=== PATIENT | female | born 1955 | race Caucasian/White ===

== ENCOUNTER 2016-11-07 06:53 | Inpatient (IN) ==
[2016-11-07] MEDS ORDERED: methylPREDNISolone SOD SUC 125 MG/2 ML VIAL IV STA (07:18)
--- NOTE | 2016-11-07 07:24 | Emergency Department Note ---
Rocky Rogers Rolonda, am scribing for, and in the presence of, Jose Juan Groves MD 07: 18. Yaneli Rogers James D, MD, personally performed the services described in this documentation, ascribed by Mukesh Hidalgo in my presence, and it is both accurate and complete 723 . Arrival - Arrival Stated Complaint: anxiety attack Mode of Arrival: Stretcher Limitations: No Limitations Source: Old Records Reviewed, RN Notes Reviewed - History of Present Illness HPI Narrative: Pt is a 63 y/o female who was brought to the ED via EMS for further evaluation of anxiety attack. Pt has no PMHx of anxiety. Pt has Sxs of coughing and SOB. She goes to pain Tx 1 times a month. She confirms smoking No other complaint/ pain reported in ED. patient states that she was hospitalized last month at [facility] and was on mechanical ventilation due to pneumonia. Patient states that she is routinely followed by Dr. Maynard. She smokes cigarettes. Onset (ago): minute(s) Consistency: constant Severity: mild Severity scale (1-10): 3 Allergies/Adverse Reactions: Allergies Allergy/AdvReac Type Severity Reaction Status Date / Time succinylcholine Allergy Severe Unknown/Unable Verified 12/05/14 11:16 [From Anectine] to obtain duloxetine [From Cymbalta] Allergy Intermediate HIVES Verified 12/05/14 11:16 Review of System - Review of System 12 point system: reviewed and no additional remarkable complaints except as stated - Review of System Eyes: Absent: pain Head/Ears/Nose/Throat: Absent: earache Gastrointestinal: Absent: abdominal pain Musculoskeletal: Absent: arm pain, back pain, neck pain Skin: Absent: rash Psychiatric: Present: anxiety Medical,Surgical,& Family Hx - Medical History Respiratory: History of: Pneumonia - Social History Smoking Status: Current every day smoker Have you smoked in the last 12 months: Yes Time spent discussing smoking cessation with patient: 3 to 10 minutes Lives With:: Spouse Functional capacity: independent ambulation Exam Vital Signs: Vital Signs Temperature 97.9 F 11/07/16 06:59 Pulse Rate 96 H 11/07/16 06:59 Respiratory Rate 20 11/07/16 07:04 Blood Pressure 132/65 11/07/16 06:59 O2 Sat by Pulse Oximetry 90 L 11/07/16 06:59 GENERAL: This is a chronically ill-appearing white female in no apparent distress. VITAL SIGNS: Reviewed HEENT: Head is atraumatic and normocephalic. Pupils are equal round react to light. Extraocular movements are intact. Oropharynx is benign with moist mucous membranes. NECK: Neck is soft and supple without tenderness. There are no masses. There is no lymphadenopathy. LUNGS: Minimal expiratory wheezes in the bases bilaterally. Chest rises symmetrically. There is no chest wall tenderness. CV: Heart is regular rate and rhythm without murmurs rubs or gallops. ABDOMEN: Abdomen is soft, nontender to palpation. There are no abdominal abnormal masses palpated. There is no organomegaly. Bowel sounds are present and active. SKIN: Skin is warm and dry. No rash. EXTREMITIES: Patient has full range of motion without tenderness. There is no pedal edema. NEUROLOGIC: Awake alert and oriented 4. Cranial nerves II through XII are grossly intact. Motor is 5 over 5 in all extremities bilaterally. - Head Head exam: Present: normocephalic - Cardiovascular Cardiovascular exam: Present: bradycardia Course - Consultations Consultation #1: Discussed with hospitalist. Patient will be admitted to their service. Time: 08:48 Results - Labs CBC & BMP: 11/07/16 07:39 11/07/16 07:39 Lab Results: I have reviewed the patients labs Labs: Laboratory Tests 11/07/16 07:33 ABG pH 7.331 L ABG pCO2 46.1 ABG pO2 60.5 L ABG HCO3 22.8 ABG Total CO2 22.5 L ABG O2 Saturation 89.1 L ABG Base Excess -1.7 - EKG EKG results: interpreted by ERMD - Impressions EKG: Sinus rhythm with a rate of 73, left axis deviation, nonspecific ST-T wave changes. - Diagnostic Findings Procedure: Chest x-ray: image reviewed by me (Right lower lobe infiltrate.) Disposition Clinical Impression: Dyspnea, Pneumonia, Acute respiratory failure Case discussed with: patient Disposition: Still a Patient Condition: Stable Time of Disposition: 08:37
[2016-11-07] MEDS ORDERED: methylPREDNISolone SOD SUC 125 MG/2 ML VIAL ONE (07:29)
[2016-11-07] MEDS ORDERED: ALBUTEROL 2.5 MG/3 ML NEB RESP TX SCH (07:30)
[2016-11-07 07:48] LABS: ABG Base Excess -1.7 MMOL/L (-2.5-2.5); ABG HCO3 22.8 MMOL/L (20-26); ABG Oxygen Saturation 89.1 % (95-100); ABG PCO2 46.1 MM HG (35-48); ABG PH 7.331 (7.35-7.45); ABG PO2 60.5 MM HG (80-95); ABG TCO2 22.5 MMOL/L (23-27)
[2016-11-07 07:56] LABS: Basophils # 0.1 10*3/uL (0.0-0.2); Basophils % 0.4 % (0.0-0.8); Eosinophils % 0.2 % (0.00-10.9); Hemoglobin 9.6 GM/DL (12.0-16.0); Immature Granulocytes % 1.2 %; Immature Granulocytes Absolute 0.18 #; Lymphocytes # 1.1 10*3/uL (1.4-4.0); Lymphocytes % 7.1 % (21.3-54.2); Mean Corpuscular Hemoglobin 27 PG (27-34); Mean Platelet Volume 9.7 FL (9.6-12.0); Monocytes # 0.7 10*3/uL (0.11-0.8); Monocytes % 4.4 % (1.7-12.7); Neutrophils # 13.5 10*3/uL (1.4-7.4); Neutrophils % 86.7 % (38.7-73.9); Platelet Count 431 T/CUMM (130-400); Red Blood Count 3.53 MC/CUMM (3.8-5.5); White Blood Count 15.6 T/CUMM (4-12)
[2016-11-07 08:05] LABS: INR 1.2; PT Patient Result 13.1 SECS; Partial Thromboplastin Time 27.4 SECS (0-40)
--- NOTE | 2016-11-07 08:25 | EKG Report ---
Stationary ECG Study [facility] ER Test Date: 11/07/2016 8:25:27 AM Pat Name: TAB SANDHU Department: Room: Gender: F Data Transcriber: : 1955 Requested by: Jose Juan Taylor Order Number: [id number] Reading MD: ERIKA GOMEZ Intervals [place] Rate: 73 P: 64 [place]: 158 QRS: -29 QRSD: 102 T: 60 QT: 384 QTc: 409 Interpretive Statements SINUS RHYTHM BORDERLINE LEFT AXIS DEVIATION Electronically Signed On 11-07-16 13:06:51 CDT by ERIKA GOMEZ [email or web address]
[2016-11-07 08:33] LABS: Alanine Aminotransferase 17 U/L (13-56); Albumin 3.2 G/DL (3.4-5.0); Alkaline Phosphatase 132 U/L (45-117); Aspartate Amino Transferase 12 U/L (0-37); Bilirubin,Total < 0.39 MG/DL (0.2-1.0); Blood Urea Nitrogen 9 MG/DL (7-18); Calcium 8.2 MG/DL (8.5-10.1); Glucose 142 MG/DL (74-106); Osmolality,Calculated 273.8 MOS/KG (273-304); Potassium 3.9 MMOL/L (3.5-5.1); Sodium 137 MMOL/L (136-145); Troponin I Only < 0.015 NG/ML (0.00-0.045)
[2016-11-07] MEDS ORDERED: LEVOFLOXACIN INJ 750 MG in PREMIX 1 EACH IV STA (08:37)
[2016-11-07] MEDS ORDERED: LEVOFLOXACIN INJ 150 ML IV ONE (08:42)
--- NOTE | 2016-11-07 08:46 | XRay Report ---
History: Shortness of breath Date: 11/07/2016 Study: Chest x-ray AP portable Comparison exam: February 17, 2011 There is cardiomegaly. There is no mediastinal mass. The pulmonary vasculature is upper normal. There is some patchy and hazy airspace disease in the right lung base. There is mild to moderate right pleural effusion. Osseous structures are unchanged. Hardware from anterior cervical fusion overlies the lower cervical spine. Impression: Right basilar pneumonia and pleural effusion PROCEDURE INTERPRETED AT [facility] DEPARTMENT OF RADIOLOGY Final Report Signed by: Dr. Charla Mahmood
[2016-11-07] MEDS ORDERED: ALBUTEROL 2.5 MG/3 ML NEB RESP TX STA (08:47)
[2016-11-07 08:53] LABS: Barbiturates Screen,Urine Negative (Negative); Benzodiazepines Screen,Urine Positive (Negative); Cannabinoid Screen,Urine Negative (Negative); Opiate Screen,Urine Positive (Negative); Phencyclidine Screen,Urine Negative (Negative)
[2016-11-07] MEDS ORDERED: ALBUTEROL 2.5 MG/3 ML NEB RESP TX PRN (09:04)
--- NOTE | 2016-11-07 09:30 | Hospitalist History & Physical ---
<Josiah Munoz - Last Filed: 11/07/16 09:28> Assessment and Plan (1) Nicotine addiction Status: Acute Assessment and plan: Patient has a very significant history of nicotine addiction. Patient reports fairly recent attempts to abstain from smoking however, these were attempts were not successful. Spoke with patient in great detail regarding the need to refrain from smoking. Patient reports that she is planning on stopping at some point in time but not right now. We have offered the patient a nicotine patch for use during the clinical encounter. Current Visit: Yes (2) Pneumonia Status: Acute Assessment and plan: Patient was recently hospitalized for pneumonia at [facility] in [facility]. During that hospital admission the patient was intubated due to a very severe case of pneumonia. The patient reports that she has never been told that she has chronic obstructive pulmonary disease however her presenting signs and symptoms and the degree of severity; leads me to suspect that she has been told this in the past. Blood cultures were obtained in the ED. We will start empiric antibiotic coverage, inhaled bronchodilators, and intravenous corticosteroids. We will start DVT prophylaxis. We will consult pulmonary to evaluate and assist during the clinical encounter. Current Visit: Yes History of Present Illness Chief complaint: anxiety attack History of present illness: This is a 61-year-old female that presented to the ED at [facility] this morning via EMS for the evaluation of anxiety attack. Patient has a medical history significant for: Pneumonia, chronic pain, anxiety , osteoporosis, depression. Patient is surgical history significant for section, multiple neck and back surgeries. Patient reported the onset of symptoms several days prior to presentation. The patient reported a recent hospitalization at [facility] in [place], [place] for pneumonia. The patient reports that her pneumonia was very severe and that she required mechanical ventilation during that hospitalization. She reports that she never "got over the pneumonia" since the hospitalization. The patient reports that she is a current smoker, however she has decreased the amount that she smokes daily. Pertinent positives include: Orthopnea, shortness of breath, paroxysmal nocturnal dyspnea, anxiety, and cough; pertinent negatives include: nausea, vomiting, syncope, dysuria, abdominal pain, visual disturbances, and chest pain. At the time of ED presentation; the patient was noted to be in moderate respiratory distress. Inhaled bronchodilator treatments were immediately initiated. Labs were obtained; complete blood count was ordered which reported white blood cell count of 15.6, hemoglobin 9.6, hematocrit 30.0, and platelet count of 431 differential was significant for neutrophil% at 86.7, lymphocyte % at 7.1, neutrophil #at 86.7, and lymphocytes #1.1. Coagulation panel was obtained which reported an INR at 1.2, PT 13.1, PTT at 27.4. Arterial blood gases reported a pH of 7.331, PCO2 of 46, PO2 of 60.5, and HCO3 at 22.5. Chemistry panel reported sodium at 137, potassium 3.9, chloride 103, carbon dioxide 25, anion gap at 12.9, BUN at 9, creatinine at 1.20, GFR 51, glucose 142 , calcium 8.2, magnesium 2.0, AST at 12, ALT at 17, alkaline phosphatase at 132 , BNP 12/16/2018, total protein is 6.0, and albumin 3.2. Cardiac enzymes reported a troponin at less than 0.015. Urine toxicology was significant for positive findings for opioids and benzodiazepines. Chest x-ray was obtained which reported right basilar pneumonia and pleural effusion. In addition CT chest was ordered with a very significant findings as follows:1. Bilateral pleural effusions and underlying atelectatic change/pneumonic infiltration in the right base,2. hilar adenopathy and carinal and aortic pulmonic window nodes are present, small supraclavicular nodes are also present, some calcified nodes present in the right and left hilar region and posterior mediastinum as well and underlying malignancies cannot be excluded, 3. Underlying centrilobular emphysematous changes are also present, 4. Low-density nodular mass in the anterior aspect of the right hepatic lobe measuring 2.4 cm with a small cyst present this finding in the liver appears to represent a new finding when compared to the previous CT in 2011 and ultrasound of the liver or MRI of the liver may also be beneficial, 5. Vascular calcification of the aorta with cardiomegaly. After brief discussion with both and Dr. Arzola, the patient will be admitted to the hospitalist services for continuation of care. We will consult pulmonology to evaluate and assist during the clinical encounter. Allergies Allergy/AdvReac Type Severity Reaction Status Date / Time succinylcholine Allergy Severe Unknown/Unable Verified 11/07/16 10:39 [From Anectine] to obtain duloxetine [From Cymbalta] Allergy Intermediate HIVES Verified 11/07/16 10:39 sulfamethoxazole Allergy Intermediate RASH Verified 11/07/16 10:40 [From Bactrim] trimethoprim [From Bactrim] Allergy Intermediate RASH Verified 11/07/16 10:40 Medical,Surgical,& Family Hx - Medical History Psychological: History of: Anxiety Disorders Respiratory: History of: Pneumonia Musculoskeletal: History of: Back/Neck Problems - Social History Smoking Status: Current every day smoker Frequency of Alcohol Use: None Type of Drug Use: None Exam - Constitutional Vitals: Period Temp Pulse Resp BP Sys/Garcia Pulse Ox Last 24 Hr 97.9 F-97.9 F 74-96 20-31 132-132/65-65 90-90 General appearance: mild distress - Head Head exam: Present: normal inspection, normocephalic, atraumatic - Eye Eye exam: Present: EOMI, conjunctival injection. Absent: nystagmus Pupils: Present: ELI, normal accommodation - ENT ENT exam: Present: normal exam, normal external ear exam, normal oropharynx - Neck Neck exam: Present: normal inspection. Absent: lymphadenopathy, meningismus, tenderness, thyromegaly - Respiratory Respiratory exam: Present: accessory muscle use, wheezes (expiratory wheeze) - Cardiovascular Cardiovascular exam: Present: regular rate and rhythm. Absent: carotid bruit, diastolic murmur, gallop, JVD, rubs, systolic murmur - GI/Abdominal GI/Abdominal exam: Present: normal bowel sounds, soft - Extremities Exam Extremities exam: Present: normal inspection, normal capillary refill, full ROM. Absent: edema - Back Exam Back exam: Present: normal inspection - Neurological Exam Neurological exam: Present: alert, oriented X3, CN II-XII intact - Psychiatric Psychiatric exam: Present: anxious - Skin Skin exam: Present: normal color, warm, dry Results - Labs CBC & BMP: 11/07/16 07:39 11/07/16 07:39 Lab Results: I have reviewed the past 24 hour labs <Ronald Arzola - Last Filed: 11/07/16 15:08> History of Present Illness History of present illness: Patient seen and examined independently of LATHA Munoz, agree with history, assessment and plan as documented. 61 y/o WF with recent admission at [facility] for pneumonia and PE (requiring intubation) who presents with shortness of breath. Treating with antibiotics, steroids and duonebs. Pulmonary consulted, plan for thoracentesis. Exam - Constitutional Vitals: Period Temp Pulse Resp BP Sys/Garcia Pulse Ox Last 24 Hr 97.9 F-98.0 F 74-98 15-31 128-151/64-71 90-95 Results - Labs CBC & BMP: 11/07/16 07:39 11/07/16 07:39
--- NOTE | 2016-11-07 09:34 | CT Report ---
Exam:CT chest w con Date:11/07/2016 8:47 AM Indication: Right lower lobe pneumonia Comparison: 11/07/2016 chest routine and previous CT chest 02/09/2011 Technical: Images were obtained from the thoracic inlet through the lung bases with 80 cc of contrast. Axial sagittal and coronal imaging was available for review. Dose reduction was performed with decreasing kv and mA and automated exposure Total DLP: 327.5 mGy*cm Findings: The thyroid gland, trachea and esophagus are unremarkable. The anterior middle and posterior mediastinum are demonstrated with nodes present in the carinal region and aortopulmonic window. Small nodes in the hilar regions are also present. Small supraclavicular nodes are present left greater than right measuring approximately 8 mm. Small axillary nodes are present left greater than right. Cardiomegaly is present. No pericardial effusion present. The pulmonary arteries reveal no obvious pulmonary thromboemboli present. ASVD is present in the aorta. The lungs are demonstrated with bilateral pleural effusions right greater than left with underlying atelectatic change air bronchograms infiltrates in the right base with underlying blebs and bulla changes and centrilobular emphysematous changes present. The bony structures are unremarkable. The adrenal glands are intact. The liver is demonstrated with a 2.4 cm mass anteriorly present with a smaller cystic area in the posterior aspect of the liver measure possibly 6.8 mm. Scattered small areas are also suspected. Splenic granuloma changes are present.. The proximal kidneys appear intact. The gallbladder and pancreas are only partially demonstrated. Impression: 1. Bilateral pleural effusions and underlying atelectatic change/pneumonic infiltrate in the right base 2. Hilar adenopathy and carinal and aortopulmonic window nodes are present. Small supraclavicular nodes are also present. Some calcified nodes present in the right and left hilar region and posterior mediastinum as well. Underlying malignancies cannot be excluded. 3. Underlying centrilobular emphysematous changes are also present. 4. Low density nodular mass in the anterior aspect the right hepatic lobe measuring 2.4 cm with smaller cyst also present. This finding in the liver appears represent a new finding when compared to previous CT 02/09/2011 ultrasound of the liver or MRI of the liver may also be beneficial 5. Vascular calcification of the aorta with cardiomegaly. Critical test findings discussed with Dr. Paolo Groves. PROCEDURE INTERPRETED AT [facility] DEPARTMENT OF RADIOLOGY Final Report Signed by: Dr. Tay Bee
[2016-11-07] MEDS ORDERED: FUROSEMIDE 20 MG/2 ML VIAL IV ONE (10:22)
--- NOTE | 2016-11-07 10:23 | Pulmonology Consult Note ---
History of Present Illness Chief complaint: S OB. MURO right pleural effusion. Possible CHF History of present illness: Ms. Villa is a 61 year old white female whom I been asked to see in pulmonary consultation. This patient was seen along with her and nereyda Bentley RN. Suspect this patient is not a forthcoming historian. She says the room is too hot. Her review of systems and history was obtained from her and with input from her . This patient was hospitalized to [facility] in September she got out of the hospital October 06. She said she was admitted there with pneumonia. On the second day she was placed on mechanical ventilation. She said she had a small pulmonary embolus. Her said this involved only one artery. She says that over the last 2-3 days she has developed increased shortness of breath. She has a cough. She denies any sputum production. She denies hemoptysis. She denies fever chills or diaphoresis. The remainder of the review of systems is negative. Allergies. See below. Home medicines. Not available. Past history. Patient was here at [facility] in January 2011. Her discharge diagnoses were #1 encephalitis. 2. Metabolic encephalopathy. 3. History of high blood pressure 4. History of Xanax use 5. History of cervical and lumbar disc disease per On 07/09/2001 patient had disc surgery at [facility] by Dr. Wilder Oakley. There is a history of depression. She had a left hip fracture in 2009. She had lumbar back surgery in April 2011 in [place]. Social history. Patient smokes at least a pack of cigarettes per day. She is . Disability secondary to neck and back problems Family history. Her mother had psychiatric illnesses. Chest x-ray. 11/07/2016. My interpretation. Mild cardiomegaly. There is venous congestion in both hilar areas. Mediastinum is probably normal. Both lung last reveal increased interstitial markings which are most prominent perihilar area. There is a left pleural effusion which is moderate in size. There appears to be a small left pleural effusion CT of the chest. 11/07/2016. 1. Bilateral pleural effusions. Greater on the right. Atelectasis at the right base. Possible pneumonia. 2. Hilar adenopathy and carinal and aortopulmonary window lymph nodes. Small supraclavicular nodes are also present. Calcified nodes in the right and left hilar areas and posterior mediastinum. 3. Emphysema. 4. Low density nodular mass in the anterior aspect of the right hepatic lobe which measures 2.4 cm. This is a new finding compared to a film done 02/09/2011. 5. Vascular calcification of the aorta. 6. Cardiac enlargement Lab. Natruretic peptide is elevated 419. Creatinine is 1.2. BUN is 9. Electrolytes are normal. Protein and albumin are low at 6.0 and 3.2 respectively. White count is 15,687 segs. H&H is 9.6/30.0. Red blood cell distribution width is elevated. MCV is low. Platelets of 431,000. INR is 1.2. Toxicology. Positive for opiates and benzodiazepine ABGs. PH is 7.33. PCO2 is 46.1. PO2 is 60.5. Bicarb 20 2. Physical exam. Psychiatric. Not a good historian. Very nervous. present. Nereyda Bentley RN present Neurologic. Cranial nerves are intact. Patient moves all 4 extremities. Sensory exam was not done. Gait was not tested. Face. Symmetrical. No swelling of the lips or tongue. Neck. Symmetrical. No meningismus. Thyroid was not palpated Lymphatics. No submandibular cervical supraclavicular or epitrochlear adenopathy. Note small supraclavicular nodes were seen on CT scan of the chest Chest. Decreased inspiratory excursion. Breath sounds are stiff and close to the ear. I do not hear wheeze or stridor. No chest wall tenderness Heart. Lateral PMI. Faint gallop. I cannot hear murmur or rub. Abdomen. Nondistended. Nontender. Bowel sounds are present Lower extremities. Very mild overlying skin changes of chronic venous stasis. Tender with pressure over both posterior calves. Arterial. Carotids were palpable but mainly traversed behind sternocleidomastoid muscles. Upper extremity pulses are palpable. Lower extremity pulses were nonpalpable. Venous exam of the neck and upper extremities are normal lower extremities show evidence of chronic venous stasis and tenderness with posterior pressure over the gastrocnemius muscles bilaterally. The remainder the physical exam is negative. Impression. 1. Probable acute congestive heart failure 2. Look for right parapneumonic effusion versus empyema 3. Bilateral hilar adenopathy. Etiology undetermined. This could be secondary to congestive heart failure. Consider other causes such as old sarcoidosis. 4. Tobacco abuse. 5. COPD 6. Hypoxemia. 7. Hypoproteinemia and hypoalbuminemia 8. Chronic pain. 9. Disability secondary to neck and back problem 10. Pulmonary embolus in September 2016 treated at [facility]. said it involved only one blood vessel. 11. Anemia. 12. History of anxiety disorder Plan. 1. Thoracentesis right pleural effusion. Will request cytology, white blood cells. H&H. Glucose. SGOT. Total protein. LDH. Gram stain. Bacterial culture. AFB stains and culture. Glucose. 2. Lasix 20 mg IV push now 3. Follow-up chest x-ray and lab 4. Doppler venograms of lower extremities 5. Sputum for Gram stain culture and sensitivity 6. Agree with protocol antibiotics. 7. See orders 8. Angiotensin-converting enzyme 9. Echocardiogram Allergies Allergy/AdvReac Type Severity Reaction Status Date / Time succinylcholine Allergy Severe Unknown/Unable Verified 12/05/14 11:16 [From Anectine] to obtain duloxetine [From Cymbalta] Allergy Intermediate HIVES Verified 12/05/14 11:16 Exam (Pulmonay) H&P - Constitutional Vitals: Period Temp Pulse Resp BP Sys/Garcia Pulse Ox Last 24 Hr 97.9 F-97.9 F 74-96 20-31 132-132/65-65 90-90 Medical,Surgical,& Family Hx - Medical History Psychological: History of: Anxiety Disorders Respiratory: History of: Pneumonia Musculoskeletal: History of: Back/Neck Problems - Social History Smoking Status: Current every day smoker Frequency of Alcohol Use: None Type of Drug Use: None Results - Labs CBC & BMP: 11/07/16 07:39 11/07/16 07:39
[2016-11-07] MEDS: PIPERACILLIN/TAZOBACTAM 3,375 MG in SODIUM CHLORIDE 0.9% 100 ML IV SCH ×2 (11:08→20:34)
[2016-11-07 11:33] LABS: Free T4 (Free Thyroxine) 1.37 NG/DL (0.76-1.46); Thyroid Stimulating Hormone 0.847 uIU/ml (0.358-3.74)
[2016-11-07] MEDS: methylPREDNISolone SOD SUC 40 MG/1 ML VIAL IV SCH ×2 (14:01→18:16)
--- NOTE | 2016-11-07 14:13 | ECHO Report ---
Danica Villa Exam Date: 11/07/2016 10:46 Referring Physician: Technologist: Gem Castellanos Age: 61 Ht (in): 67 Wt (lb): 152 Gender: F Exam Location: [facility] Echo Indications: Dyspnea, unspecified, Pneumonia, Acute respiratory failure, Mixed acid base balance disorder, Nicotine addiction BP: 132 / 87 HR: 84 Rhythm: Sinus Technical Quality: Very technically difficult study IMPRESSIONS Technically difficult study. Left ventricular ejection fraction is estimated at 60 %. Grade I/IV diastolic dysfunction (abnormal relaxation filling pattern), normal to mildly elevated filling pressures. Normal right ventricular size. The right atrium is mildly enlarged. The left atrium is mildly enlarged. Mild mitral valve sclerosis. Mild mitral valve regurgitation. Aortic valve sclerosis. No aortic valve regurgitation. [id number] tricuspid valve regurgitation.[id number]. No pericardial effusion. Normal size aortic root and proximal ascending aorta. MEASUREMENTS (Male / Female) Normal Values 2D ECHO LV Diastolic Diameter PLAX 3.0 cm 4.2 - 5.9 / 3.9 - 5.3 cm LV Systolic Diameter PLAX 2.0 cm LV Fractional Shortening PLAX 34.8 % IVS Diastolic Thickness 2.2 cm 0.6 - 1.0 / 0.6 - 0.9 cm LVPW Diastolic Thickness 1.9 cm 0.6 - 1.0 / 0.6 - 0.9 cm RV Internal Dim ED PLAX 3.0 cm Aortic Root Diameter 3.3 cm LA Systolic Diameter LX 3.1 cm 3.0 - 4.0 / 2.7 - 3.8 cm DOPPLER TR Peak Velocity 267.0 cm/s TR Peak Gradient 28.5 mmHg FINDINGS Left Ventricle Left ventricular ejection fraction is estimated at 60 %. Grade I/IV diastolic dysfunction (abnormal relaxation filling pattern), normal to mildly elevated filling pressures. Right Ventricle Normal right ventricular size. Right Atrium The right atrium is mildly enlarged. Left Atrium The left atrium is mildly enlarged. Mitral Valve Mild mitral valve sclerosis. Mild mitral valve regurgitation. Aortic Valve Aortic valve sclerosis. No aortic valve regurgitation. Tricuspid Valve Morphologically normal tricuspid valve. [id number]-rm-kubwlekr tricuspid valve regurgitation. PAP 40-45 mmHG. Pulmonic Valve Pulmonic valve not well visualized. Pericardium No pericardial effusion. Aorta Normal size aortic root and proximal ascending aorta. Alvaor Mandeep (Electronically Signed) Final Date: 07 November 2016 14:12
[2016-11-07] MEDS: ALBUTEROL/IPRATROPIUM 3 ML NEB RESP TX SCH ×2 (14:27→19:11)
--- NOTE | 2016-11-07 15:02 | Post Interventional Procedure ---
Pre-op diagnosis: Right pleural effusion Post-op diagnosis: same Procedure: Right thoracentesis w/ US guidance Radiologist: Giovanny Carranza Anesthesia: local Specimens: other (400cc clear, straw colored pleural fluid) Estimated blood loss: none Complications: none Condition: stable Assessment and Plan - Time spent with patient Time spent with patient: Less than 30 minutes
[2016-11-07] MEDS: BUDESONIDE/FORMOTEROL 160-4.5 INHALER 6 GM INH SCH ×2 (15:19→22:47)
--- NOTE | 2016-11-07 15:38 | Ultrasound Report ---
History: Lower extremity edema Date: 11/07/2016 Study: Bilateral lower extremity color-flow venous Doppler study Comparison exam: No previous Color Doppler, wave form analysis, and compression analysis of the deep veins of both lower extremities from the common femoral vein level through the popliteal vein level shows that the veins are readily compressible. There is no abnormal intraluminal material to suggest thrombus. Waveform analysis is unremarkable. Ultrasound images were captured and archived Impression: Normal bilateral lower extremity color flow venous Doppler study. No evidence of acute DVT PROCEDURE INTERPRETED AT [facility] DEPARTMENT OF RADIOLOGY Final Report Signed by: Dr. Charla Mahmood
[2016-11-07 15:39] LABS: Lymphocytes,Pleural Fluid 78 %; Monocytes,Pleural Fluid 11 %; Neutrophils,Pleural Fluid 11 %; RBC,Pleural Fluid 60 T/CUMM
[2016-11-07] MEDS: oxyCODONE/ACETAMINOPHEN 5-325 MG TABLET PO PRN (15:39)
[2016-11-07 15:42] LABS: Amylase,Body Fluid 11 U/L; Glucose,Pleural Fluid 133 MG/DL; LDH,Body Fluid 72 U/L; Total Protein,Body Fluid < 2.0 G/DL
--- NOTE | 2016-11-07 15:50 | Ultrasound Report ---
Exam: US liver Date: 11/07/2016 10:20 AM Comparison: CT chest 11/07/2016 Indication: Liver nodules Technique:[Multiple transabdominal real-time scans were obtained of the right upper quadrant. Color-flow scans obtained. Ultrasound images were captured and stored.] Findings: No gallbladder pathology identified. CBD is dilated measuring 9.4 mm. The liver is normal in size with suboptimal demonstration of the masses noted on CT. Right kidney measures 90 mm in length with no mass or hydronephrosis. The visualized pancreas and aorta have an unremarkable appearance. Portions of the pancreas, aortic bifurcation, and IVC are obscured by bowel gas. Color-flow documented in the portal vein. Right pleural effusion. Impression: No definite gallbladder pathology is identified. However the CBD is dilated measuring 9.4 mm. The distal duct, pancreas, and aorta are obscured by bowel gas. Suboptimal demonstration of the liver masses noted on CT. PROCEDURE INTERPRETED AT [facility] DEPARTMENT OF RADIOLOGY Final Report Signed by: Dr. Viridiana Mittal
--- NOTE | 2016-11-07 16:21 | XRay Report ---
XR chest post procedure Indication: Status post right thoracentesis. Post procedure chest radiograph, 2 views: Inspiratory and expiratory views of the chest were obtained. Since earlier today, the right pleural effusion has reduced in size but there is still fluid or pleural thickening at the right lung base with continued atelectasis. No pneumothorax. Diffuse coarsened interstitial markings of the lungs and cardiomegaly appear stable otherwise. Impression: Reduced size of right pleural effusion. PROCEDURE INTERPRETED AT [facility] DEPARTMENT OF RADIOLOGY Final Report Signed by: Giovanny Carranza M.D.
--- NOTE | 2016-11-07 16:22 | Ultrasound Report ---
US thoracentesis Indication: Right pleural effusion. ULTRASOUND-GUIDED THORACENTESIS Description: A formal timeout was performed. Maximum sterile barrier technique was used. A right pleural effusion was identified with ultrasound. The right back was prepped and draped in sterile fashion. Under sonographic guidance, a 6 [place] pigtail catheter was advanced into the effusion using trocar technique. A captured sonographic image documents needle position. The needle was removed. Through the catheter, we obtained a total of 400 cc of straw-colored, clear fluid. The catheter was removed. A bandage was placed at the puncture site. The patient tolerated the procedure well. Chest radiograph is pending. Impression: Ultrasound-guided thoracentesis. PROCEDURE INTERPRETED AT [facility] DEPARTMENT OF RADIOLOGY Final Report Signed by: Giovanny Carranza M.D.
[2016-11-07] MEDS: ALPRAZolam 0.5 MG TABLET PO SCH (20:31)
[2016-11-07] MEDS: hydrALAZINE 25 MG TABLET PO SCH (20:31)
[2016-11-07] MEDS: tiZANidine 4 MG TABLET PO SCH (20:31)
[2016-11-07] MEDS ORDERED: NON-FORMULARY MEDICATION (Oxycodone Hcl [Oxycontin] 15 MG) PO SCH (21:00)
[2016-11-08] MEDS: ALBUTEROL/IPRATROPIUM 3 ML NEB RESP TX SCH ×4 (00:04→19:25)
[2016-11-08] MEDS: methylPREDNISolone SOD SUC 40 MG/1 ML VIAL IV SCH ×4 (00:38→21:42)
[2016-11-08] MEDS: PIPERACILLIN/TAZOBACTAM 3,375 MG in SODIUM CHLORIDE 0.9% 100 ML IV SCH ×3 (03:46→21:38)
[2016-11-08] MEDS: oxyCODONE/ACETAMINOPHEN 5-325 MG TABLET PO PRN ×3 (04:20→14:18)
[2016-11-08 05:46] LABS: Basophils % 0.1 % (0.0-0.8); Hematocrit 31.1 VOL% (35.7-47.0); Hemoglobin 9.9 GM/DL (12.0-16.0); Immature Granulocytes % 1.6 %; Immature Granulocytes Absolute 0.27 #; Lymphocytes # 0.9 10*3/uL (1.4-4.0); Lymphocytes % 5.6 % (21.3-54.2); Mean Corpuscular HGB Conc 31.8 GM/DL (32-36); Mean Corpuscular Hemoglobin 27 PG (27-34); Mean Corpuscular Volume 84.3 FL (87-102); Mean Platelet Volume 9.7 FL (9.6-12.0); Monocytes # 0.3 10*3/uL (0.11-0.8); Monocytes % 1.8 % (1.7-12.7); Neutrophils % 90.9 % (38.7-73.9); Platelet Count 466 T/CUMM (130-400); Red Blood Count 3.69 MC/CUMM (3.8-5.5); Red Cell Distribution Width 18.6 % (9.3-17.3); White Blood Count 16.5 T/CUMM (4-12)
[2016-11-08 06:14] LABS: Band Neutrophils 1 % (0-10); Lymphocytes 3 % (20-55); Segmented Neutrophils 94 % (50-85); Total Cells Counted 100
[2016-11-08 06:15] LABS: Hypochromasia 1+; Microcytosis 1+; Ovalocytes Slight
[2016-11-08 06:16] LABS: Platelet Estimate Increased
[2016-11-08 06:19] LABS: Calcium 8.8 MG/DL (8.5-10.1); Magnesium 2.2 MG/DL (1.8-2.4); Osmolality,Calculated 281.3 MOS/KG (273-304); Potassium 3.9 MMOL/L (3.5-5.1)
[2016-11-08] MEDS: BUDESONIDE/FORMOTEROL 160-4.5 INHALER 6 GM INH SCH ×3 (07:00→22:42)
[2016-11-08] MEDS: LEVOFLOXACIN INJ 750 MG in PREMIX 1 EACH IV SCH (08:01)
[2016-11-08] MEDS: hydrALAZINE 25 MG TABLET PO SCH ×3 (08:02→21:45)
[2016-11-08] MEDS: amLODIPine 10 MG TABLET PO SCH (08:02)
[2016-11-08] MEDS: ALPRAZolam 0.5 MG TABLET PO SCH ×2 (08:02→21:45)
[2016-11-08] MEDS: ESCITALOPRAM 10 MG TABLET PO SCH (08:02)
[2016-11-08] MEDS: tiZANidine 4 MG TABLET PO SCH ×2 (08:02→21:45)
[2016-11-08] MEDS: ARIPiprazole 2 MG TABLET PO SCH (08:03)
--- NOTE | 2016-11-08 09:10 | Physician Query Form ---
CLICK EDIT DOCUMENT TO SELECT QUERY ANSWER --> OK --> SIGN Destini Martino RN, CCDS Certified Clinical Director [employer] W) [phone] (f) [phone] [email or web address] PROVIDERS: Make your selection(s) from the choices in EACH section by typing an "x" and enter comments in the comment section. Please use your independent medical judgment in providing your response. This request does not imply that any particular answer is desired or expected. CLINICAL INDICATORS: (Providers should not edit this section) The medical record indicates that the patient was admitted with acute CHF, " Left ventricular ejection fraction is estimated at 60 %" and the patient was treated with some Lasix. Please provide further specificity regarding CHF. TYPE: ( ) Systolic (HFrEF - heart failure with reduced systolic function/EF) ( x) Diastolic (HFpEF - heart failure with preserved systolic function/EF) ( ) Combined Systolic/Diastolic ( ) Other, please specify: ( ) Clinically unable to determine ( ) The patient does NOT have CHF COMMENTS: PLEASE ALSO DOCUMENT RESPONSE IN PROGRESS NOTES AND/OR DISCHARGE SUMMARY Use of terms such as suspected, likely, or probable (associated with a specific diagnosis that is being evaluated, monitored, or treated as if it exists) are acceptable and can be restated in the discharge summary if not ruled out. MTDD
--- NOTE | 2016-11-08 09:32 | XRay Report ---
Exam: XR chest 1V portable Date: 11/08/2016 7:07 AM Indication: Post thoracentesis Comparison: 11/07/2016 Technical:AP portable Findings: Cardiomegaly present with low volume right effusion. Underlying alveolar edema and interstitial thickening present. Oxygen tubing are present. Previous cervical fusion noted. Mediastinum is intact. Bony structures are otherwise unremarkable. No pneumothorax Impression: 1. Low volume right base effusion and atelectatic change with underlying alveolar interstitial edema slightly improved when compared to previous exam. 2. Previous cervical fusion PROCEDURE INTERPRETED AT [facility] DEPARTMENT OF RADIOLOGY Final Report Signed by: Dr. Tay Bee
--- NOTE | 2016-11-08 10:11 | Pulmonology Progress Note ---
Pulmonary - PN: Subj Interval history: Castillo Pearce[facility] acting as scribe for Dr. Tay Marsh Mrs. Villa is a 61-year-old white female who we saw in initial pulmonary consultation on 11/07/2016. At that time, our impressions were: 1. Probable acute congestive heart failure 2. Look for right parapneumonic effusion versus empyema 3. Bilateral hilar adenopathy. Etiology undetermined. This could be secondary to congestive heart failure. Consider other causes such as old sarcoidosis. 4. Tobacco abuse. 5. COPD 6. Hypoxemia. 7. Hypoproteinemia and hypoalbuminemia 8. Chronic pain. 9. Disability secondary to neck and back problem 10. Pulmonary embolus in September 2016 treated at [facility]. said it involved only one blood vessel. 11. Anemia. 12. History of anxiety disorder 11/08/2016. Patient was seen today along with her and Graciela Ocampo RN. Patient underwent thoracentesis by interventional radiology yesterday. On review of the fluid, this appears to be a transudate. BNP has increased to 680. Echocardiogram done 11/07/[address] Kaufman showed an ejection fraction estimated at 60%, grade 1 diastolic dysfunction, mildly increased filling pressures, mildly enlarged right atrium, mild mitral valve sclerosis and mild mitral valve regurgitation, mild to moderate tricuspid valve regurgitation, and pulmonary artery pressure 40-45 mmHg. Because of some abnormality seen on CT of the chest done 11/07/2016, liver ultrasound was obtained. This showed no definite gallbladder pathology however the common bile duct is dilated measuring 9.4 mm. There was noted suboptimal demonstration of liver masses that were noted on CT. Doppler venograms showed no evidence of DVT in either lower extremity. Recent hospital records from [facility] have been reviewed. Overall, the patient appears slightly improved after thoracentesis. She remains tachypneic and hypoxic with an O2 sat of 94% on 2 L nasal cannula. Chest x-ray shows dense apical capping, probable right lower lung infiltrate compatible with pneumonia, and congestive heart failure. We will diurese her with Lasix 20 mg IV every 8 hours and consult [facility] for cardiology evaluation. Medications have been reviewed. Labs been reviewed. White count 16,500 with 90.9% segs; H&H 9.9/31.1 with decreased indices and increased red blood cell distribution with; platelet count 466,000; creatinine has improved to 1.00, BUN 12, electrolytes are normal ; BNP is elevated further to 680; TSH and free T4 normal. Angiotensin- converting enzyme level is pending. Pleural fluid from thoracentesis done 11/07/2016 showed a total protein of less than 2.0, LDH 72, amylase 11, lipase 12, pH 8.00, WBCs 318, RBC 16, predominant lymphocytes, and glucose 133. Cytology is pending. Gram stain showed no organisms. Culture is growing nothing at 12 hours. No fungal elements were seen on smear. AFB studies are pending. Exam (Progress Note) - Constitutional Vitals: Period Temp Pulse Resp BP Sys/Garcia Pulse Ox Last 24 Hr 97.6 F-98.6 F 71-105 15-28 136-159/64-75 91-99 Exam: Chest with decreased respiratory excursion. No appreciable wheeze or stridor, but breath sounds are stiff Heart with a lateral PMI and faint gallop; no appreciable murmur rub Abdomen is nontender and nondistended; bowel sounds positive 4 Lower extremities with nothing to suggest acute deep venous thrombophlebitis; note, Doppler venograms done 11/07/2012 showed no DVT Psychiatric awake and alert, but anxious Neurologic unchanged Plan: Start diuresis with Lasix 20 mg IV every 8 hours. Start Micro-K 10 mEq twice daily. Consult [facility] for cardiology evaluation. Daily chest x-ray and labs. See orders. Results - Labs CBC & BMP: 11/08/16 05:27 11/08/16 05:27
[2016-11-08 10:49] LABS: Folate 5.7 NG/ML (5.4-24.0)
[2016-11-08] MEDS: POTASSIUM CHLORIDE 10 MEQ TABLET PO SCH ×2 (10:56→21:45)
[2016-11-08] MEDS: FUROSEMIDE 20 MG/2 ML VIAL IV SCH ×2 (10:56→18:14)
--- NOTE | 2016-11-08 14:19 | Hospitalist Progress Note ---
Assessment and Plan (1) Shortness of breath Status: Acute Assessment and plan: Recent admission for pneumonia at [facility] Pulmonary assisting CT read as bilateral pleural effusions and possible right base pneumonia Treating as such with abx BNP is slightly elevated but echo with EF60 and only mild diastolic dysfunction , not consistent with this being the cause Cardiology has been consulted, will f/u recommendations Current Visit: Yes (2) Nicotine addiction Status: Acute Current Visit: Yes Hospitalist: Subjective Interval history: No acute events overnight. Reports that her breathing has been better today. Visibly sob during my exam, she says due to a recent argument with her . Exam - Constitutional Vitals: Period Temp Pulse Resp BP Sys/Garcia Pulse Ox Last 24 Hr 96.9 F-98.6 F 71-105 15-28 136-159/64-75 91-99 General appearance: over weight - Head Head exam: Present: normocephalic, atraumatic - Eye Eye exam: Present: EOMI Pupils: Present: ELI - ENT ENT exam: Present: normal exam - Neck Neck exam: Present: normal inspection - Respiratory Respiratory exam: Present: clear to auscultation bilaterally. Absent: rhonchi, wheezes - Cardiovascular Cardiovascular exam: Present: regular rate and rhythm - GI/Abdominal GI/Abdominal exam: Present: normal bowel sounds, soft. Absent: tenderness, rebound - Extremities Exam Extremities exam: Present: normal inspection - Back Exam Back exam: Present: normal inspection - Neurological Exam Neurological exam: Present: alert, oriented X3 - Psychiatric Psychiatric exam: Present: normal affect, normal mood - Skin Skin exam: Present: warm, intact Results - Labs CBC & BMP: 11/08/16 05:27 11/08/16 05:27
--- NOTE | 2016-11-08 16:41 | Cardiology Consult Note ---
Mitzi Rogers April RN, am scribing for, and in the presence of, Cindy Monet MD 16:38. Assessment and Plan - Time spent with patient Time spent with patient: Greater than 30 minutes (Due to assessment, planning, documentation, medication review) (1) History of pulmonary embolism Status: Chronic Current Visit: Yes (2) Pulmonary hypertension Status: Chronic Current Visit: Yes (3) Hypertension Status: Chronic Current Visit: Yes (4) Pneumonia Status: Acute Current Visit: Yes (5) Shortness of breath Status: Acute Current Visit: Yes History of Present Illness - Data of Consult Patient: new to practice Consult date: 11/08/16 Requesting Physician: Castillo Pearce - Consult Narrative Reason for consult: CHF 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 She denies ever having had a heart catheterization or a stress test. She has a medical history of anxiety, pneumonia, back and neck problems, osteoporosis, osteoarthritis, and an eye problem for which she gets shots in her eye. Surgical history includes left hip and 2 neck fusions. She denies any family history to me, but it is noted in the chart that her father had prostate cancer and her mother had heart disease. She reports she is a non-smoker, states she quit when she was admitted yesterday. Before that time she was smoking less than 1 pack a day. She reports in mid September she was at [facility] for 2 weeks on the ventilator for 8-9 days with pneumonia and pulmonary embolism. She does not feel like she completely recovered from that. Yesterday morning she said she was awakened with a nightmare. She got up, tripped, and fell. She denies any syncope with this episode, she says it was related to anxiety. She says she has shortness of breath that is related to her anxiety. She states she is not short of breath whenever she is not anxious, however in the room when I question her about the degree of her tachypnea, she has many excuses for it, including that she just got up to go to the restroom, she just ate, and that her upset her. She has had a dry cough since being admitted to the hospital, she did not have a cough before. Her stated her lips were cyanotic after the fall and he had not noticed that before. She had right thoracentesis yesterday which removed 400 cc of clear, straw-colored pleural fluid. Chest x-ray today shows slight improvement. Venous Doppler was negative for DVT of lower extremities. Chest CT and liver ultrasound done yesterday noted. We have been asked to see her in consultation for CHF. Echo done yesterday with ejection fraction of 60% with normal to mildly elevated filling pressures. BNP on admission was 419, it has increased to 680 today. Troponin has been negative 1. EKG on admission sinus rhythm, heart rate of 73. She was started on IV steroids, IV antibiotics, and inhaled bronchodilators. Ms. Villa is seen resting in bed in no acute distress. Oxygen is in use via nasal cannula and she appears tachypneic. However she states she gets very anxious around medical personnel and this causes shortness of breath. O2 sat is 94% on 2 L. She denies any chest pain, palpitations, or dizziness. She has been started on Lasix 20 mg IV every 8 hours. Assessment and plan: 1. Shortness of breath-this appears to predominantly be a pulmonary etiology. BNP is only mildly elevated compared to her degree of tachypnea. She does not have any peripheral edema or jugular venous distention, and her echocardiogram does not reveal any significant source for congestive heart failure that would lead to pleural effusions. She is being diuresed and this is appropriate treatment. 2. Hypertension-chronic. 3. Recent pneumonia. 4. Recent deep venous thrombosis. CC: Ronald Arzola MD - Home Medications and Allergies Home Medications: Home Medications Medication Instructions Recorded Confirmed Type ALPRAZolam [Alprazolam] 1 mg PO BID 11/07/16 11/07/16 History ARIPiprazole [Aripiprazole] 2 mg PO DAILY 11/07/16 11/07/16 History Albuterol Sulfate [Ventolin HFA] 2 puffs INH Q6H 11/07/16 11/07/16 History Amlodipine Besylate 5 mg PO DAILY 11/07/16 11/07/16 History Amlodipine Besylate [Amlodipine 10 mg PO DAILY 11/07/16 11/07/16 History Besylate] Budesonide/Formoterol 160-4.5 2 puffs INH Q8H 11/07/16 11/07/16 History [Symbicort 160-4.5] Escitalopram [Lexapro] 20 mg PO DAILY 11/07/16 11/07/16 History Hydralazine HCl 25 mg PO TID 11/07/16 11/07/16 History Labetalol Tab [Trandate Tab] 300 mg PO Q8H 11/07/16 11/07/16 History Oxycodone HCl [Oxycontin] 15 mg PO BID 11/07/16 11/07/16 History Oxycodone HCl/Acetaminophen 1 each PO QID PRN 11/07/16 11/07/16 History [Oxycodone-Acetaminophen 10-325] tiZANidine [Zanaflex] 2 mg PO BID 11/07/16 11/07/16 History Allergies/Adverse Reactions: Allergies Allergy/AdvReac Type Severity Reaction Status Date / Time succinylcholine Allergy Severe Unknown/Unable Verified 11/07/16 10:39 [From Anectine] to obtain duloxetine [From Cymbalta] Allergy Intermediate HIVES Verified 11/07/16 10:39 sulfamethoxazole Allergy Intermediate RASH Verified 11/07/16 10:40 [From Bactrim] trimethoprim [From Bactrim] Allergy Intermediate RASH Verified 11/07/16 10:40 - Constitutional Constitutional: Present: as per HPI - EENT Eyes: Present: loss of vision, requires corrective lense Ears: Present: ear pain. Absent: tinnitus Nose, mouth and throat: Present: neck pain. Absent: epistaxis, headache(s), hoarseness - Cardiovascular Cardiovascular: Present: dyspnea. Absent: chest pain at rest, chest pain with activity, edema, radiating jaw, neck or arm pain, lightheadedness, orthopnea, palpitations - Respiratory Respiratory: Present: cough, dyspnea. Absent: hemoptysis, wheezing - Gastrointestinal Gastrointestinal: Absent: abdominal pain, constipation, diarrhea, hematemesis, hematochezia, melena, nausea, vomiting - Genitourinary Genitourinary: Absent: dysuria, hematuria - Musculoskeletal Musculoskeletal: Present: back pain, limited range of motion - Neurological Neurological: Present: abnormal gait, abnormal speech, frequent falls. Absent: confusion, dizziness, headache(s), syncope - Psychiatric Psychiatric: Present: anxiety, depression - Hematologic/Lymphatic Hematologic/Lymphatic: Absent: easy bleeding, easy bruising Medical,Surgical,& Family Hx - Medical History Medical History: noncontributory (States she smokes less than 1 pack a day, plans to quit) Psychological: History of: Anxiety Disorders HEENT: History of: Eye Problem Respiratory: History of: Pulmonary Embolism (September 2016), Pneumonia Musculoskeletal: History of: Back/Neck Problems - Surgical History Orthopedic Surgeries: Surgical HX of;: Orthopedic Surgery (Left hip), Spinal Surgery (Neck fusion 2) - Family History Family History: Reports;: Family Cancer (father-prostate), Family Heart Disease (mom) - Social History Smoking Status: Current every day smoker Have you smoked in the last 12 months: Yes Time spent discussing smoking cessation with patient: 3 to 10 minutes Frequency of Alcohol Use: None Type of Drug Use: None Marital Status: Lives With:: Spouse Functional capacity: uses cane/walker Physical Examination Vital Signs Temp Pulse Resp BP Pulse Ox 97.9 F 96 H 20 132/65 90 L 11/07/16 06:59 11/07/16 06:59 11/07/16 06:59 11/07/16 06:59 11/07/16 06:59 Other: General appearance: normal weight, mild tachypnea but overall no significant distress - Head Head exam: Present: normal inspection, normocephalic, atraumatic. Absent: hematoma, laceration - Eye Eye exam: Present: EOMI. Absent: conjunctival injection, nystagmus, periorbital swelling, scleral icterus, laceration to eyelids Pupils: Present: PERRL. Absent: constricted, dilated, fixed, irregular, unequal - ENT ENT exam: Present: normal exam, normal external ear exam - Neck Neck exam: Present: normal inspection. Absent: lymphadenopathy, meningismus, tenderness, thyromegaly - Respiratory Respiratory exam: Present: Decreased breath sounds in the bilateral bases, with some scant crackles on the right side. Absent: accessory muscle use, chest wall tenderness - Cardiovascular Cardiovascular exam: Present: regular rate and rhythm. Absent: carotid bruit, gallop, JVD, rubs - GI/Abdominal GI/Abdominal exam: Present: normal bowel sounds, soft. Absent: distended, firm , guarding, hernia, mass, tenderness, rebound. - Extremities Exam Extremities exam: Present: normal inspection, normal capillary refill. Absent: calf tenderness, edema - Back Exam Back exam: Present: normal inspection. Absent: muscle spasm, vertebral tenderness - Neurological Exam Neurological exam: Present: alert, oriented X3, grossly intact without resting or intention tremor - Psychiatric Psychiatric exam: Present: normal affect, normal mood - Skin Skin exam: Present: normal color, warm, dry, intact. Absent: cyanosis, diaphoretic, rash, urticaria Result/EKG - Labs CBC & BMP: 11/08/16 05:27 11/08/16 05:27 Lab Results: I have reviewed the past 24 hour labs Labs: Laboratory Results - last 24 hr 11/07/16 11/07/16 11/07/16 10:33 15:10 15:10 WBC RBC Hgb Hct MCV MCH MCHC RDW Plt Count MPV Neut % (Auto) Lymph % (Auto) Haines % (Auto) Eos % (Auto) Baso % (Auto) Neut # (Auto) Lymph # (Auto) Haines # (Auto) Eos # (Auto) Baso # (Auto) Total Counted Immature Gran % Nucleated RBC % Immature Gran # Segmented Neutrophils Band Neutrophils Lymphocytes Monocytes Nucleated RBCs # Platelet Estimate Hypochromasia Microcytosis Ovalocytes Sodium Potassium Chloride Carbon Dioxide Anion Gap BUN Creatinine GFR Calculation BUN/Creatinine Ratio Glucose Calculated Osmolality Calcium Magnesium Iron TIBC % Saturation B-Natriuretic Peptide Vitamin B12 Folate Free T4 1.37 TSH 3rd Generation 0.847 Fluid Total Protein Fluid LDH Fluid Amylase Fluid Lipase Pleural pH 8.00 Pleural WBC 318 Pleural RBC [address] 100 Pleural Neutrophils 11 Pleural Lymphocytes 78 Pleural Monocytes 11 Pleural Diff Comment Pleural Glucose 11/07/16 11/08/16 11/08/16 15:10 05:27 05:27 WBC 16.5 H RBC 3.69 L Hgb 9.9 L Hct 31.1 L MCV 84.3 L MCH 27 MCHC 31.8 L RDW 18.6 H Plt Count 466 H MPV 9.7 Neut % (Auto) 90.9 H Lymph % (Auto) 5.6 L Haines % (Auto) 1.8 Eos % (Auto) 0.0 Baso % (Auto) 0.1 Neut # (Auto) 15.0 H Lymph # (Auto) 0.9 L Haines # (Auto) 0.3 Eos # (Auto) 0.0 Baso # (Auto) 0.0 Total Counted 100 Immature Gran % 1.6 Nucleated RBC % 0.0 Immature Gran # 0.27 Segmented Neutrophils 94 H Band Neutrophils 1 Lymphocytes 3 L Monocytes 2 Nucleated RBCs # 0.00 Platelet Estimate Increased Hypochromasia 1+ Microcytosis 1+ Ovalocytes Slight Sodium 141 Potassium 3.9 Chloride 104 Carbon Dioxide 22 Anion Gap 18.9 H BUN 12 Creatinine 1.00 GFR Calculation 68 BUN/Creatinine Ratio 12.00 Glucose 112 H Calculated Osmolality 281.3 Calcium 8.8 Magnesium 2.2 Iron TIBC % Saturation B-Natriuretic Peptide Vitamin B12 Folate Free T4 TSH 3rd Generation Fluid Total Protein < 2.0 Fluid LDH 72 Fluid Amylase 11 Fluid Lipase 12 Pleural pH Pleural WBC Pleural RBC Pleural Tot Cell Ct Pleural Neutrophils Pleural Lymphocytes Pleural Monocytes Pleural Diff Comment Pleural Glucose 133 11/08/16 11/08/16 11/08/16 05:27 Unknown Unknown WBC RBC Hgb Hct MCV MCH MCHC RDW Plt Count MPV Neut % (Auto) Lymph % (Auto) Haines % (Auto) Eos % (Auto) Baso % (Auto) Neut # (Auto) Lymph # (Auto) Haines # (Auto) Eos # (Auto) Baso # (Auto) Total Counted Immature Gran % Nucleated RBC % Immature Gran # Segmented Neutrophils Band Neutrophils Lymphocytes Monocytes Nucleated RBCs # Platelet Estimate Hypochromasia Microcytosis Ovalocytes Sodium Potassium Chloride Carbon Dioxide Anion Gap BUN Creatinine GFR Calculation BUN/Creatinine Ratio Glucose Calculated Osmolality Calcium Magnesium Iron 22 L TIBC 315 % Saturation 7.0 L B-Natriuretic Peptide 680 H Vitamin B12 503 Folate 5.7 Free T4 TSH 3rd Generation Fluid Total Protein Fluid LDH Fluid Amylase Fluid Lipase Pleural pH Pleural WBC Pleural RBC Pleural Tot Cell Ct Pleural Neutrophils Pleural Lymphocytes Pleural Monocytes Pleural Diff Comment Pleural Glucose - Diagnostic Findings Procedure: Chest x-ray: report reviewed by me, CT - chest: report reviewed by me , Ultrasound: report reviewed by me - EKG EKG results: interpreted by me EKG shows: sinus rhythm Chiki Rogers Jennifer, MD, personally performed the services described in this documentation, ascribed by Shagufta Cartagena RN in my presence, and it is both accurate and complete 641 .
[2016-11-09] MEDS: ALBUTEROL/IPRATROPIUM 3 ML NEB RESP TX SCH ×5 (01:35→20:05)
[2016-11-09] MEDS: FUROSEMIDE 20 MG/2 ML VIAL IV SCH ×3 (04:47→18:24)
[2016-11-09] MEDS: PIPERACILLIN/TAZOBACTAM 3,375 MG in SODIUM CHLORIDE 0.9% 100 ML IV SCH ×3 (04:51→22:20)
[2016-11-09 05:10] LABS: Basophils % 0.1 % (0.0-0.8); Hematocrit 30.3 VOL% (35.7-47.0); Hemoglobin 9.7 GM/DL (12.0-16.0); Immature Granulocytes % 1.6 %; Immature Granulocytes Absolute 0.24 #; Lymphocytes # 0.9 10*3/uL (1.4-4.0); Lymphocytes % 6.4 % (21.3-54.2); Mean Corpuscular Hemoglobin 27 PG (27-34); Mean Corpuscular Volume 83.5 FL (87-102); Mean Platelet Volume 9.4 FL (9.6-12.0); Monocytes # 0.5 10*3/uL (0.11-0.8); Monocytes % 3.4 % (1.7-12.7); Neutrophils % 88.5 % (38.7-73.9); Platelet Count 448 T/CUMM (130-400); Red Blood Count 3.63 MC/CUMM (3.8-5.5); Red Cell Distribution Width 19.2 % (9.3-17.3); White Blood Count 14.6 T/CUMM (4-12)
[2016-11-09 05:42] LABS: Calcium 8.1 MG/DL (8.5-10.1); Magnesium 2.3 MG/DL (1.8-2.4); Osmolality,Calculated 282.3 MOS/KG (273-304); Potassium 3.8 MMOL/L (3.5-5.1)
--- NOTE | 2016-11-09 07:03 | XRay Report ---
Exam: XR chest 1V portable Date: 11/09/2016 4:00 AM Indication: CHF pneumonia hypoxia Comparison: 11/08/2016 Technical: AP portable Findings: Mild cardiac prominence present. Coarse reticular interstitial densities present within the lung last with a tiny low volume right effusion and/or atelectatic change infiltrate in the right base. Oxygen tubing is present. Previous cervical fusion noted. Mediastinum is intact. Impression: 1. Tiny low volume right effusion and pleural diaphragmatic reaction with some improvement in aeration in the lung last bilaterally with slight decreased alveolar interstitial densities bilaterally 2. Underlying scarring in the lung last with apical pleural thickening 3. Prior cervical fusion PROCEDURE INTERPRETED AT [facility] DEPARTMENT OF RADIOLOGY Final Report Signed by: Dr. Tay Bee
[2016-11-09] MEDS: methylPREDNISolone SOD SUC 40 MG/1 ML VIAL IV SCH ×2 (09:53→22:20)
[2016-11-09] MEDS: POTASSIUM CHLORIDE 10 MEQ TABLET PO SCH ×2 (09:53→22:19)
[2016-11-09] MEDS: ARIPiprazole 2 MG TABLET PO SCH (09:53)
[2016-11-09] MEDS: amLODIPine 10 MG TABLET PO SCH (09:53)
[2016-11-09] MEDS: BUDESONIDE/FORMOTEROL 160-4.5 INHALER 6 GM INH SCH ×2 (09:54→17:06)
[2016-11-09] MEDS: hydrALAZINE 25 MG TABLET PO SCH ×3 (09:54→22:19)
[2016-11-09] MEDS: ESCITALOPRAM 10 MG TABLET PO SCH (09:54)
[2016-11-09] MEDS: FERROUS SULFATE 325 MG TABLET PO SCH ×2 (09:54→22:19)
[2016-11-09] MEDS: LEVOFLOXACIN INJ 750 MG in PREMIX 1 EACH IV SCH (09:55)
[2016-11-09] MEDS: tiZANidine 4 MG TABLET PO SCH ×2 (09:55→22:20)
[2016-11-09] MEDS: ALPRAZolam 0.5 MG TABLET PO SCH ×2 (09:55→22:19)
--- NOTE | 2016-11-09 10:07 | Pulmonology Progress Note ---
Pulmonary - PN: Subj Interval history: Mrs. Villa is a 61-year-old white female who we saw in initial pulmonary consultation on 11/07/2016. At that time, our impressions were: 1. Probable acute congestive heart failure 2. Look for right parapneumonic effusion versus empyema 3. Bilateral hilar adenopathy. Etiology undetermined. This could be secondary to congestive heart failure. Consider other causes such as old sarcoidosis. 4. Tobacco abuse. 5. COPD 6. Hypoxemia. 7. Hypoproteinemia and hypoalbuminemia 8. Chronic pain. 9. Disability secondary to neck and back problem 10. Pulmonary embolus in September 2016 treated at [facility]. said it involved only one blood vessel. 11. Anemia. 12. History of anxiety disorder 11/08/2016. Patient was seen today along with her and Graciela Ocampo RN. Patient underwent thoracentesis by interventional radiology yesterday. On review of the fluid, this appears to be a transudate. BNP has increased to 680. Echocardiogram done 11/07/[address] Kaufman showed an ejection fraction estimated at 60%, grade 1 diastolic dysfunction, mildly increased filling pressures, mildly enlarged right atrium, mild mitral valve sclerosis and mild mitral valve regurgitation, mild to moderate tricuspid valve regurgitation, and pulmonary artery pressure 40-45 mmHg. Because of some abnormality seen on CT of the chest done 11/07/2016, liver ultrasound was obtained. This showed no definite gallbladder pathology however the common bile duct is dilated measuring 9.4 mm. There was noted suboptimal demonstration of liver masses that were noted on CT. Doppler venograms showed no evidence of DVT in either lower extremity. Recent hospital records from [facility] have been reviewed. Overall, the patient appears slightly improved after thoracentesis. She remains tachypneic and hypoxic with an O2 sat of 94% on 2 L nasal cannula. Chest x-ray shows dense apical capping, probable right lower lung infiltrate compatible with pneumonia, and congestive heart failure. We will diurese her with Lasix 20 mg IV every 8 hours and consult [facility] for cardiology evaluation. Medications have been reviewed. Labs been reviewed. White count 16,500 with 90.9% segs; H&H 9.9/31.1 with decreased indices and increased red blood cell distribution with; platelet count 466,000; creatinine has improved to 1.00, BUN 12, electrolytes are normal ; BNP is elevated further to 680; TSH and free T4 normal. Angiotensin- converting enzyme level is pending. Pleural fluid from thoracentesis done 11/07/2016 showed a total protein of less than 2.0, LDH 72, amylase 11, lipase 12, pH 8.00, WBCs 318, RBC 16, predominant lymphocytes, and glucose 133. Cytology is pending. Gram stain showed no organisms. Culture is growing nothing at 12 hours. No fungal elements were seen on smear. AFB studies are pending. 11/09/2016. This patient has had congestive heart failure. Today's chest x-ray looks much better. She is lying flat in bed and breathing comfortably. She is being diuresed and her nitrated peptide is gradually fallen to 436. Electrolytes are normal. Creatinine stable at 1.0 with a BUN of 12. H&H is 9.7 /30.3. White count 14,688 segs. Platelets of 448,000. Pleural fluid obtained on thoracentesis shows a transudate compatible with congestive heart failure. No organisms were seen and there is no growth. Patient is still not given us a sputum. I have asked her to try to give us a good sample and I have reordered it. Her iron is low so will start her on iron replacement. Furthermore avoid is a chest x-ray, BNP and BMP. She is a patient of Dr. Giovanny barrett. Patient was seen along with alexandrea Bentley RN, Castillo Pearce nurse practitioner and a young woman. I assume she is not family since yesterday the patient said she had no family except her Exam (Progress Note) - Constitutional Vitals: Period Temp Pulse Resp BP Sys/Garcia Pulse Ox Last 24 Hr 97.6 F-98.6 F 71-105 15-28 136-159/64-75 91-99 Exam: Psychiatric. Oriented 3. Lots of anxiety. Chest with decreased respiratory excursion. No appreciable wheeze or stridor, but breath sounds are stiff Heart with a lateral PMI and faint gallop; no appreciable murmur rub Abdomen is nontender and nondistended; bowel sounds positive 4 Lower extremities with nothing to suggest acute deep venous thrombophlebitis; note, Doppler venograms done 11/07/2012 showed no DVT Psychiatric awake and alert, but anxious Neurologic unchanged Lymphatics. No submandibular cervical supraclavicular or epitrochlear adenopathy. The remainder of the physical exam is noncontributory Plan: 11/08/2069 1. Start diuresis with Lasix 20 mg IV every 8 hours. 2. Start Micro-K 10 mEq twice daily 3. Consult [facility] for cardiology evaluation. 4. Daily chest x-ray and labs. 5. See orders. 11/09/2016. 1. See today's note above. 2. Start iron 3. Continue diuresis. 4. Follow-up chest x-ray, BNP and BMP in the morning. Exam (Progress Note) - Constitutional Vitals: Period Temp Pulse Resp BP Sys/Garcia Pulse Ox Last 24 Hr 96.9 F-98.6 F 64-102 20-26 130-159/68-74 90-99 Results - Labs CBC & BMP: 11/09/16 04:50 11/09/16 04:50
--- NOTE | 2016-11-09 10:16 | Hospitalist Progress Note ---
<Josiah Munoz - Last Filed: 11/09/16 10:31> Assessment and Plan (1) Nicotine addiction Status: Acute Assessment and plan: Patient has a very significant history of nicotine addiction. Patient reports fairly recent attempts to abstain from smoking however, these were attempts were not successful. Spoke with patient in great detail regarding the need to refrain from smoking. Patient reports that she is planning on stopping at some point in time but not right now. We have offered the patient a nicotine patch for use during the clinical encounter. Current Visit: Yes (2) Pneumonia Status: Acute Assessment and plan: Patient was recently hospitalized for pneumonia at [facility] in [facility]. During that hospital admission the patient was intubated due to a very severe case of pneumonia. The patient reports that she has never been told that she has chronic obstructive pulmonary disease however her presenting signs and symptoms and the degree of severity; leads me to suspect that she has been told this in the past. Blood cultures were obtained in the ED. We will start empiric antibiotic coverage, inhaled bronchodilators, and intravenous corticosteroids. We will start DVT prophylaxis. We will consult pulmonary to evaluate and assist during the clinical encounter. 11/09-seen and evaluated by pulmonology. We will continue bronchodilators empiric antibiotic coverage and corticosteroids as previously ordered. Ultrasound-guided right thoracentesis on 11/07 noted 400 mL output. Pleural fluid sent for analysis; no growth to date. The patient has slight improvement however remains noticeably short of breath and increase in respiratory effort noted. Current Visit: Yes Hospitalist: Subjective Interval history: Patient seen and examined; no significant overnight events. Patient reports shortness of breath; however reports "some relief" after thoracentesis. Exam - Constitutional Vitals: Period Temp Pulse Resp BP Sys/Garcia Pulse Ox Last 24 Hr 96.9 F-98.6 F 64-102 20-26 130-159/68-74 90-99 General appearance: normal weight, mild distress - Head Head exam: Present: normal inspection, normocephalic, atraumatic - Eye Eye exam: Present: EOMI Pupils: Present: ELI, normal accommodation - ENT ENT exam: Present: normal exam, normal external ear exam, normal oropharynx - Neck Neck exam: Present: normal inspection. Absent: lymphadenopathy, meningismus, thyromegaly - Respiratory Respiratory exam: Present: accessory muscle use. Absent: rhonchi - Cardiovascular Cardiovascular exam: Present: regular rate and rhythm. Absent: carotid bruit, diastolic murmur, gallop, JVD, rubs, systolic murmur - GI/Abdominal GI/Abdominal exam: Present: normal bowel sounds, soft - Extremities Exam Extremities exam: Present: normal inspection, normal capillary refill, full ROM. Absent: edema - Back Exam Back exam: Present: normal inspection - Neurological Exam Neurological exam: Present: alert, oriented X3, CN II-XII intact - Psychiatric Psychiatric exam: Present: normal mood - Skin Skin exam: Present: normal color, warm Results - Labs CBC & BMP: 11/09/16 04:50 11/09/16 04:50 Lab Results: I have reviewed the past 24 hour labs <Ronald Arzola - Last Filed: 11/09/16 15:42> Assessment and Plan (1) Shortness of breath Status: Acute Current Visit: Yes (2) Nicotine addiction Status: Acute Current Visit: Yes Hospitalist: Subjective Interval history: Patient seen and examined independently of LATHA Munoz, agree with assessment and plan as documented. Patient looks much more comfortable today. She is very eager for discharge, possibly tomorrow. Exam - Constitutional Vitals: Period Temp Pulse Resp BP Sys/Garcia Pulse Ox Last 24 Hr 97.5 F-99.1 F 64-104 16-26 130-159/68-86 90-99 Results - Labs CBC & BMP: 11/09/16 04:50 11/09/16 04:50
[2016-11-09 10:35] LABS: ABG Base Excess 6.7 MMOL/L (-2.5-2.5); ABG HCO3 30.6 MMOL/L (20-26); ABG Oxygen Saturation 98.7 % (95-100); ABG PCO2 40.5 MM HG (35-48); ABG PH 7.488 (7.35-7.45); ABG TCO2 27.9 MMOL/L (23-27); Allen Test Positive
--- NOTE | 2016-11-09 18:15 | Pathology Report from [facility] ---
[facility] ACCESSION # : [id number] PATIENT NAME : Danica Villa ORDERING DR : NICO RODRIGUEZ MD CLINICAL HX: Right Pleural Effusion POST-OP DX: Same SPECIMEN INFO: Fluid,Pleural,Right - 500 mls yellow, cloudy CLASS: II CLASS COMMENTS: Blood, inflammation, reactive cells present.CELL BLOCK: Same; TTF1-, calretinin+ CLASS LEGEND: CLASS 0 Material inadequate for diagnosis because of (see comment) CLASS I Absence of atypical or abnormal cells CLASS II Atypical Cytology but no evidence of malignancy CLASS III Cytology suggestive of but not conclusive for malignancy CLASS IV Cytology strongly suggestive of malignancy CLASS V Cytology conclusive for malignancy COLLECTED DATE: 11/08/2016 [facility] REPORT DATE: 11/09/2016 ELECTRONICALLY SIGNED BY: John Arias III, M.D. 11/09/2016 - 14:02:20 MERLENE
--- NOTE | 2016-11-09 18:38 | Cardiology Progress Note ---
IMitzi April RN, am scribing for, and in the presence of, Cindy Monet MD 18:38. 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 Villa is a 61 year old female who has never been seen by a special technical operations officer. She denies ever having had a heart catheterization or a stress test. She has a medical history of anxiety, pneumonia, back and neck problems, osteoporosis, osteoarthritis, and an eye problem for which she gets shots in her eye. Surgical history includes left hip and 2 neck fusions. She denies any family history to me, but it is noted in the chart that her father had prostate cancer and her mother had heart disease. She reports in mid September she was at [facility] for 2 weeks on the ventilator for 8-9 days with pneumonia and pulmonary embolism. She does not feel like she completely recovered from that. On the morning of 11/07/2016 she said she was awakened with a nightmare. She got up, tripped, and fell. She denies any syncope with this episode, she says it was related to anxiety. She says she has shortness of breath that is related to her anxiety. She states she is not short of breath whenever she is not anxious, however in the room when I question her about the degree of her tachypnea, she has many excuses for it, including that she just got up to go to the restroom, she just ate, and that her upset her. She has had a dry cough since being admitted to the hospital, she did not have a cough before. Her stated her lips were cyanotic after the fall and he had not noticed that before. She had right thoracentesis yesterday which removed 400 cc of clear, straw-colored pleural fluid. Chest x-ray today shows slight improvement. Venous Doppler was negative for DVT of lower extremities. Chest CT and liver ultrasound done yesterday noted. We have been asked to see her in consultation for CHF. Echo done yesterday with ejection fraction of 60% with normal to mildly elevated filling pressures. BNP on admission was 419, it has increased to 680 today. Troponin has been negative 1. EKG on admission sinus rhythm, heart rate of 73. She was started on IV steroids, IV antibiotics, and inhaled bronchodilators. 11/09/2016: Ms. Villa states she is ready to go home today. She denies any chest pain. Oxygen is in use via nasal cannula and she appears slightly tachypneic, but not as bad as yesterday. She reports her breathing is doing fine. Her BNP has improved 436 today. Echo done this admission with ejection fraction of 60%. Chest x-ray today showed some improvement. Assessment and plan: 1. Shortness of breath-this appears to predominantly be a pulmonary etiology. BNP is only mildly elevated compared to her degree of tachypnea. She does not have any peripheral edema or jugular venous distention, and her echocardiogram does not reveal any significant source for congestive heart failure that would lead to pleural effusions. She is being diuresed and this is appropriate treatment. 2. Hypertension-chronic. 3. Recent pneumonia. 4. Recent deep venous thrombosis. Exam (Progress Note) - Constitutional Vitals: Period Temp Pulse Resp BP Sys/Garcia Pulse Ox Last 24 Hr 97.5 F-99.1 F 64-102 18-26 130-159/68-86 90-99 Exam: General appearance: normal weight, no acute distress - Head Head exam: Present: normal inspection, normocephalic, atraumatic. Absent: hematoma, laceration - Eye Eye exam: Present: EOMI. Absent: conjunctival injection, nystagmus, periorbital swelling, scleral icterus, laceration to eyelids Pupils: Present: PERRL. Absent: constricted, dilated, fixed, irregular, unequal - ENT ENT exam: Present: normal exam, normal external ear exam - Neck Neck exam: Present: normal inspection. Absent: lymphadenopathy, meningismus, tenderness, thyromegaly - Respiratory Respiratory exam: Present: Prolonged expiration, mildly decreased breath sounds at the bases. Absent: accessory muscle use, chest wall tenderness - Cardiovascular Cardiovascular exam: Present: regular rate and rhythm. Absent: carotid bruit, gallop, JVD, rubs - GI/Abdominal GI/Abdominal exam: Present: normal bowel sounds, soft. Absent: distended, firm , guarding, hernia, mass, tenderness, rebound. - Extremities Exam Extremities exam: Present: normal inspection, normal capillary refill. Absent: calf tenderness, edema - Back Exam Back exam: Present: normal inspection. Absent: muscle spasm, vertebral tenderness - Neurological Exam Neurological exam: Present: alert, oriented X3, grossly intact without resting or intention tremor - Psychiatric Psychiatric exam: Present: normal affect, normal mood - Skin Skin exam: Present: normal color, warm, dry, intact. Absent: cyanosis, diaphoretic, rash, urticaria Result/EKG - Labs CBC & BMP: 11/09/16 04:50 11/09/16 04:50 Labs: Laboratory Results - last 24 hr 11/07/16 11/09/16 11/09/16 10:34 04:50 04:50 WBC 14.6 H RBC 3.63 L Hgb 9.7 L Hct 30.3 L MCV 83.5 L MCH 27 MCHC 32.0 RDW 19.2 H Plt Count 448 H MPV 9.4 L Neut % (Auto) 88.5 H Lymph % (Auto) 6.4 L [place] % (Auto) 3.4 Eos % (Auto) 0.0 Baso % (Auto) 0.1 Neut # (Auto) 13.0 H Lymph # (Auto) 0.9 L [place] # (Auto) 0.5 Eos # (Auto) 0.0 Baso # (Auto) 0.0 Immature Gran % 1.6 Nucleated RBC % 0.0 Immature Gran # 0.24 Nucleated RBCs # 0.00 ABG pH ABG pCO2 ABG pO2 ABG HCO3 ABG Total CO2 ABG O2 Saturation ABG Base Excess FiO2 Sodium 141 Potassium 3.8 Chloride 103 Carbon Dioxide 29 Anion Gap 12.8 BUN 12 Creatinine 1.00 GFR Calculation 68 BUN/Creatinine Ratio 12.00 Glucose 126 H Calculated Osmolality 282.3 Calcium 8.1 L Magnesium 2.3 B-Natriuretic Peptide Angiotensin Convert Enz 53 11/09/16 11/09/16 04:50 10:35 WBC RBC Hgb Hct MCV MCH MCHC RDW Plt Count MPV Neut % (Auto) Lymph % (Auto) [place] % (Auto) Eos % (Auto) Baso % (Auto) Neut # (Auto) Lymph # (Auto) [place] # (Auto) Eos # (Auto) Baso # (Auto) Immature Gran % Nucleated RBC % Immature Gran # Nucleated RBCs # ABG pH 7.488 H ABG pCO2 40.5 ABG pO2 102.0 H ABG HCO3 30.6 H ABG Total CO2 27.9 H ABG O2 Saturation 98.7 ABG Base Excess 6.7 H FiO2 36.00 Sodium Potassium Chloride Carbon Dioxide Anion Gap BUN Creatinine GFR Calculation BUN/Creatinine Ratio Glucose Calculated Osmolality Calcium Magnesium B-Natriuretic Peptide 436 H Angiotensin Convert Chiki Chou Jennifer, MD, personally performed the services described in this documentation, ascribed by Shagufta Cartagena RN in my presence, and it is both accurate and complete [id number] .
[2016-11-10] MEDS: ALBUTEROL/IPRATROPIUM 3 ML NEB RESP TX SCH ×2 (01:07→07:30)
[2016-11-10] MEDS: FUROSEMIDE 20 MG/2 ML VIAL IV SCH (03:00)
[2016-11-10] MEDS: PIPERACILLIN/TAZOBACTAM 3,375 MG in SODIUM CHLORIDE 0.9% 100 ML IV SCH (03:02)
[2016-11-10 05:33] LABS: Basophils % 0.1 % (0.0-0.8); Hematocrit 33.1 VOL% (35.7-47.0); Hemoglobin 10.5 GM/DL (12.0-16.0); Immature Granulocytes % 1.4 %; Immature Granulocytes Absolute 0.16 #; Lymphocytes # 0.8 10*3/uL (1.4-4.0); Lymphocytes % 6.7 % (21.3-54.2); Mean Corpuscular HGB Conc 31.7 GM/DL (32-36); Mean Corpuscular Hemoglobin 26 PG (27-34); Mean Corpuscular Volume 83.2 FL (87-102); Mean Platelet Volume 9.7 FL (9.6-12.0); Monocytes # 0.3 10*3/uL (0.11-0.8); Monocytes % 2.2 % (1.7-12.7); Neutrophils # 10.5 10*3/uL (1.4-7.4); Neutrophils % 89.6 % (38.7-73.9); Platelet Count 451 T/CUMM (130-400); Red Blood Count 3.98 MC/CUMM (3.8-5.5); Red Cell Distribution Width 18.6 % (9.3-17.3); White Blood Count 11.7 T/CUMM (4-12)
[2016-11-10 06:07] LABS: Bilirubin,Total 0.5 MG/DL (0.2-1.0); Magnesium 2.1 MG/DL (1.8-2.4); Osmolality,Calculated 286.1 MOS/KG (273-304); Phosphorous 3.3 MG/DL (2.5-4.9); Potassium 3.6 MMOL/L (3.5-5.1); Total Protein 5.9 G/DL (6.4-8.3)
--- NOTE | 2016-11-10 07:36 | XRay Report ---
Exam: XR chest 1V portable Date: 11/10/2016 4:00 AM Indication: CHF pneumonia hypoxemia Comparison: 11/09/2016 Technical: AP portable Findings: Underlying infiltrate present in the right base with low-volume effusion which has slightly increased. Cardiomegaly is present. Oxygen tubing is present. Patchy interstitial densities are present in the lung last bilaterally as well. ASVD is present. Previous cervical fusion noted. Impression: 1. Slight increasing density in the right base suggest possibly a component of effusion with atelectasis and infiltrate present. Findings are superimposed on chronic underlying lung disease bilaterally 2. Cardiomegaly 3. Prior cervical fusion PROCEDURE INTERPRETED AT [facility] DEPARTMENT OF RADIOLOGY Final Report Signed by: Dr. Tay Bee
[2016-11-10 08:20] VITALS: BP 129/74
[2016-11-10] MEDS: ESCITALOPRAM 10 MG TABLET PO SCH (09:08)
[2016-11-10] MEDS: FERROUS SULFATE 325 MG TABLET PO SCH (09:08)
[2016-11-10] MEDS: amLODIPine 10 MG TABLET PO SCH (09:08)
[2016-11-10] MEDS: LEVOFLOXACIN INJ 750 MG in PREMIX 1 EACH IV SCH (09:09)
[2016-11-10] MEDS: hydrALAZINE 25 MG TABLET PO SCH (09:09)
[2016-11-10] MEDS: ALPRAZolam 0.5 MG TABLET PO SCH (09:09)
[2016-11-10] MEDS: oxyCODONE/ACETAMINOPHEN 5-325 MG TABLET PO PRN (09:09)
[2016-11-10] MEDS: methylPREDNISolone SOD SUC 40 MG/1 ML VIAL IV SCH (09:09)
[2016-11-10] MEDS: BUDESONIDE/FORMOTEROL 160-4.5 INHALER 6 GM INH SCH ×2 (09:10)
[2016-11-10] MEDS: ARIPiprazole 2 MG TABLET PO SCH (09:38)
[2016-11-10] MEDS: tiZANidine 4 MG TABLET PO SCH (09:39)
[2016-11-10] MEDS: POTASSIUM CHLORIDE 10 MEQ TABLET PO SCH (09:39)
--- NOTE | 2016-11-10 09:55 | Discharge Summary ---
<Josiah Munoz - Last Filed: 11/10/16 09:36> Hospital Course - Hospital Course Hospital Course: This is a 61-year-old female that presented to the ED at [facility] on November 07, 2016 via EMS for the evaluation of anxiety attack. Patient has a medical history significant for: Pneumonia, chronic pain, anxiety , osteoporosis, depression. Patient is surgical history significant for section, multiple neck and back surgeries. Patient reported the onset of symptoms several days prior to presentation. The patient reported a recent hospitalization at [facility] in [place], [place] for pneumonia. The patient reports that her pneumonia was very severe and that she required mechanical ventilation during that hospitalization. She reports that she never "got over the pneumonia" since the hospitalization. The patient reports that she is a current smoker, however she has decreased the amount that she smokes daily. Pertinent positives include: Orthopnea, shortness of breath, paroxysmal nocturnal dyspnea, anxiety, and cough; pertinent negatives include: nausea, vomiting, syncope, dysuria, abdominal pain, visual disturbances, and chest pain. At the time of ED presentation; the patient was noted to be in moderate respiratory distress. Inhaled bronchodilator treatments were immediately initiated. Labs were obtained; complete blood count was ordered which reported white blood cell count of 15.6, hemoglobin 9.6, hematocrit 30.0, and platelet count of 431 differential was significant for neutrophil% at 86.7, lymphocyte % at 7.1, neutrophil #at 86.7, and lymphocytes #1.1. Coagulation panel was obtained which reported an INR at 1.2, PT 13.1, PTT at 27.4. Arterial blood gases reported a pH of 7.331, PCO2 of 46, PO2 of 60.5, and HCO3 at 22.5. Chemistry panel reported sodium at 137, potassium 3.9, chloride 103, carbon dioxide 25, anion gap at 12.9, BUN at 9, creatinine at 1.20, GFR 51, glucose 142 , calcium 8.2, magnesium 2.0, AST at 12, ALT at 17, alkaline phosphatase at 132 , BNP 12/16/2018, total protein is 6.0, and albumin 3.2. Cardiac enzymes reported a troponin at less than 0.015. Urine toxicology was significant for positive findings for opioids and benzodiazepines. Chest x-ray was obtained which reported right basilar pneumonia and pleural effusion. In addition CT chest was ordered with a very significant findings as follows:1. Bilateral pleural effusions and underlying atelectatic change/pneumonic infiltration in the right base,2. hilar adenopathy and carinal and aortic pulmonic window nodes are present, small supraclavicular nodes are also present, some calcified nodes present in the right and left hilar region and posterior mediastinum as well and underlying malignancies cannot be excluded, 3. Underlying centrilobular emphysematous changes are also present, 4. Low-density nodular mass in the anterior aspect of the right hepatic lobe measuring 2.4 cm with a small cyst present this finding in the liver appears to represent a new finding when compared to the previous CT in 2010 and ultrasound of the liver or MRI of the liver may also be beneficial, 5. Vascular calcification of the aorta with cardiomegaly. After brief discussion with both and Dr. Arzola, the patient was admitted to the hospitalist services for continuation of care. Pulmonary was consulted. On November 07, 2016, the patient underwent a right ultrasound-guided thoracentesis in which 400 mL of pleural fluid was removed. Cytology report was received on November 09, 2016 which reported no evidence of malignancy. At the time of ED presentation, the patient's BNP was noted at 419. Cardiac enzymes were ordered and were essentially benign. Echocardiogram on November 07, reported with ejection fraction of 60% with normal to mildly elevated filling pressures. Cardiology was consulted, who did not feel heart failure was sufficient enough to account for amount of shortness of breath. Empiric antibiotics, inhaled bronchodilators and corticosteroids were initiated. The patient's condition gradually improved. She has now reached maximal benefit of inpatient stay and will be discharged home. She is being evaluated for home oxygen. Diagnosis - Discharge Diagnosis (1) Nicotine addiction Status: Acute (2) Pneumonia Status: Acute Discharge Plan - Discharge Data Disposition: Disch To Home/Self Care - Discharge Medications New Furosemide Tab [Lasix Tab] 20 mg PO BID DIURETIC #60 tablet Levofloxacin Tab [Levaquin Tab] 500 mg PO Q24H #7 tablet predniSONE TAB [PredniSONE] 10 mg PO Q2D #10 tablet Ferrous Sulfate Tab [Feosol Original Tab] 325 mg PO BID #60 tablet predniSONE TAB [PredniSONE] 10 mg PO DAILY #10 tablet Continue ALPRAZolam [Alprazolam] 1 mg PO BID Oxycodone HCl [Oxycontin] 15 mg PO BID Amlodipine Besylate 10 mg PO DAILY Escitalopram [Lexapro] 20 mg PO DAILY Budesonide/Formoterol 160-4.5 [Symbicort 160-4.5] 2 puffs INH Q8H Albuterol Sulfate [Ventolin HFA] 2 puffs INH Q6H ARIPiprazole [Aripiprazole] 2 mg PO DAILY Hydralazine HCl 25 mg PO TID tiZANidine [Zanaflex] 2 mg PO BID Oxycodone HCl/Acetaminophen [Oxycodone-Acetaminophen 10-325] 1 each PO QID PRN PRN Reason: Pain Labetalol Tab [Trandate Tab] 300 mg PO Q8H Amlodipine Besylate 5 mg PO DAILY - Follow Up or Referral - Forms/Instructions Exam - Constitutional Vitals: Period Temp Pulse Resp BP Sys/Garcia Pulse Ox Last 24 Hr 98.0 F-99.8 F 73-104 16-20 129-146/70-77 91-99 Discharge Results Procedures and tests throughout hospitalization: Pending Orders 11/07/16 10:02 Cytology Request Routine 11/07/16 10:03 Sputum Culture and Gram Stain Routine 11/07/16 10:33 Blood Culture Stat 11/07/16 14:40 AFB Culture/Smears Routine Fungal Culture w/ Prep Routine 11/09/16 09:37 Sputum Culture and Gram Stain Routine 11/11/16 04:00 XR chest 1V portable IN AM B-Type Natriuretic Peptide IN AM Basic Metabolic Panel w/Mg IN AM Labs on day of discharge: Labs from last 24 hours 11/10/16 11/10/16 11/10/16 04:20 04:20 04:20 WBC 11.7 RBC 3.98 Hgb 10.5 L Hct 33.1 L MCV 83.2 L MCH 26 L MCHC 31.7 L RDW 18.6 H Plt Count 451 H MPV 9.7 Neut % (Auto) 89.6 H Lymph % (Auto) 6.7 L [place] % (Auto) 2.2 Eos % (Auto) 0.0 Baso % (Auto) 0.1 Neut # (Auto) 10.5 H Lymph # (Auto) 0.8 L [place] # (Auto) 0.3 Eos # (Auto) 0.0 Baso # (Auto) 0.0 Immature Gran % 1.4 Nucleated RBC % 0.0 Immature Gran # 0.16 Nucleated RBCs # 0.00 Sodium 142 Potassium 3.6 Chloride 98 Carbon Dioxide 34 H Anion Gap 13.6 BUN 14 Creatinine 1.20 H GFR Calculation 55 BUN/Creatinine Ratio 11.00 Glucose 150 H Calculated Osmolality 286.1 Calcium 8.0 L Phosphorus 3.3 Magnesium 2.1 Total Bilirubin 0.50 AST 10 ALT 13 Alkaline Phosphatase 115 B-Natriuretic Peptide 190 H Total Protein 5.9 L Albumin 3.0 L Globulin 2.9 Albumin/Globulin Ratio 1.0 L Angiotensin Convert Enz 11/07/16 10:34 WBC RBC Hgb Hct MCV MCH MCHC RDW Plt Count MPV Neut % (Auto) Lymph % (Auto) [place] % (Auto) Eos % (Auto) Baso % (Auto) Neut # (Auto) Lymph # (Auto) [place] # (Auto) Eos # (Auto) Baso # (Auto) Immature Gran % Nucleated RBC % Immature Gran # Nucleated RBCs # Sodium Potassium Chloride Carbon Dioxide Anion Gap BUN Creatinine GFR Calculation BUN/Creatinine Ratio Glucose Calculated Osmolality Calcium Phosphorus Magnesium Total Bilirubin AST ALT Alkaline Phosphatase B-Natriuretic Peptide Total Protein Albumin Globulin Albumin/Globulin Ratio Angiotensin Convert Enz 53 Preliminary micro results at discharge 11/07/16 10:33 Blood Culture - Preliminary Blood No growth at 1 day 11/07/16 10:33 Blood Culture - Preliminary Blood No growth at 1 day DS: Provider Date of admission: 11/07/16 09:03 Primary care physician: . No PCP Attending physician on admission: Ronald Arzola MD Consults: 11/07/16 09:05 Consult to Physician [CONS] Routine Comment: Consulting Provider: Tay Marsh When should Consulting Provider be notified: Now Consult to Specialist Group: Pulmonology Person Notified: Castillo Date Notified: 11/07/16 Time Notified: 09:40 Consult Notification Comment: Castillo and Dr. Marsh on floor, made aware. 11/08/16 10:09 Consult to Physician [CONS] Routine Comment: CHF Consulting Provider: Cardiology - [facility] Person Notified: Jaden Date Notified: 11/08/16 Time Notified: 10:19 Discharging clinician: Josiah Munoz CNP <Rnoald Arzola - Last Filed: 11/10/16 10:52> Hospital Course - Time spent with patient Time with patient DS: Greater than 30 minutes (35) Diagnosis - Discharge Diagnosis (1) Shortness of breath Status: Resolved (2) Nicotine addiction Status: Chronic Discharge Plan - Discharge Data Condition at Discharge: Stable Discharge Diet: advance to your usual diet Activity: resume usual activities as tolerated Hygiene: no restrictions Weight Bearing at Discharge: weight bear as tolerated Contact your physician if you experience:: Shortness of breath Exam - Constitutional General appearance: normal weight - Head Head exam: Present: normocephalic, atraumatic - Eye Eye exam: Present: EOMI Pupils: Present: ELI - ENT ENT exam: Present: normal exam - Neck Neck exam: Present: normal inspection - Respiratory Respiratory exam: Present: clear to auscultation bilaterally. Absent: wheezes - Cardiovascular Cardiovascular exam: Present: regular rate and rhythm - GI/Abdominal GI/Abdominal exam: Present: normal bowel sounds, soft. Absent: tenderness, rebound - Extremities Exam Extremities exam: Present: normal inspection - Back Exam Back exam: Present: normal inspection - Neurological Exam Neurological exam: Present: alert, oriented X3 - Psychiatric Psychiatric exam: Present: normal affect, normal mood - Skin Skin exam: Present: warm, intact
--- NOTE | 2016-11-10 09:58 | Pulmonology Progress Note ---
Pulmonary - PN: Subj Interval history: Castillo Pearce, [facility] acting as scribe for Dr. Tay Marsh Mrs. Villa is a 61-year-old white female who we saw in initial pulmonary consultation on 11/07/2016. At that time, our impressions were: 1. Probable acute congestive heart failure 2. Look for right parapneumonic effusion versus empyema 3. Bilateral hilar adenopathy. Etiology undetermined. This could be secondary to congestive heart failure. Consider other causes such as old sarcoidosis. 4. Tobacco abuse. 5. COPD 6. Hypoxemia. 7. Hypoproteinemia and hypoalbuminemia 8. Chronic pain. 9. Disability secondary to neck and back problem 10. Pulmonary embolus in September 2016 treated at [facility]. said it involved only one blood vessel. 11. Anemia. 12. History of anxiety disorder 11/08/2016. Patient was seen today along with her and Graciela Ocampo RN. Patient underwent thoracentesis by interventional radiology yesterday. On review of the fluid, this appears to be a transudate. BNP has increased to 680. Echocardiogram done 11/07/[address] Kaufman showed an ejection fraction estimated at 60%, grade 1 diastolic dysfunction, mildly increased filling pressures, mildly enlarged right atrium, mild mitral valve sclerosis and mild mitral valve regurgitation, mild to moderate tricuspid valve regurgitation, and pulmonary artery pressure 40-45 mmHg. Because of some abnormality seen on CT of the chest done 11/07/2016, liver ultrasound was obtained. This showed no definite gallbladder pathology however the common bile duct is dilated measuring 9.4 mm. There was noted suboptimal demonstration of liver masses that were noted on CT. Doppler venograms showed no evidence of DVT in either lower extremity. Recent hospital records from [facility] have been reviewed. Overall, the patient appears slightly improved after thoracentesis. She remains tachypneic and hypoxic with an O2 sat of 94% on 2 L nasal cannula. Chest x-ray shows dense apical capping, probable right lower lung infiltrate compatible with pneumonia, and congestive heart failure. We will diurese her with Lasix 20 mg IV every 8 hours and consult [facility] for cardiology evaluation. Pleural fluid from thoracentesis done 11/07/2016 showed a total protein of less than 2.0, LDH 72, amylase 11, lipase 12, pH 8.00, WBCs 318, RBC 16, predominant lymphocytes, and glucose 133. Cytology is pending. Gram stain showed no organisms. Culture is growing nothing at 12 hours. No fungal elements were seen on smear. AFB studies are pending. 11/09/2016. This patient has had congestive heart failure. Today's chest x-ray looks much better. She is lying flat in bed and breathing comfortably. She is being diuresed and her nitrated peptide is gradually fallen to 436. Electrolytes are normal. Creatinine stable at 1.0 with a BUN of 12. H&H is 9.7 /30.3. White count 14,688 segs. Platelets of 448,000. Pleural fluid obtained on thoracentesis shows a transudate compatible with congestive heart failure. No organisms were seen and there is no growth. Patient is still not given us a sputum. I have asked her to try to give us a good sample and I have reordered it. Her iron is low so will start her on iron replacement. Furthermore avoid is a chest x-ray, BNP and BMP. She is a patient of Dr. Giovanny barrett. Patient was seen along with alexandrea Bentley RN, Castillo Pearce nurse practitioner and a young woman. I assume she is not family since yesterday the patient said she had no family except her 11/10/2016. Patient was seen today along with Rocio Shahid RN. Patient's chest x-ray shows that her previously noted heart failure has resolved. There is a tiny residual right lower lung pleural effusion. BNP has improved to 190. As noted above, pleural fluid from thoracentesis was a transudate. There is no growth on culture and no AFB or fungus seen on smears. Cytology is class II. Echocardiogram as noted above. Again, this was done when the patient was in congestive heart failure. Doppler venograms showed no evidence of infection. She is doing well from a pulmonary standpoint. Her shortness of breath has improved. She does not have a productive cough. We have changed her Lasix to 20 mg p.o. twice daily. At discharge, she would need Levaquin 500 mg daily for 7 days. Solu-Medrol can be changed to prednisone 10 mg daily for 10 days and 10 mg every other day for 10 doses. She will follow-up with Dr. herrera like her who is her primary care physician. Exam (Progress Note) - Constitutional Vitals: Period Temp Pulse Resp BP Sys/Garcia Pulse Ox Last 24 Hr 98.0 F-99.8 F 73-104 16-20 129-146/70-77 91-99 Exam: Chest with decreased respiratory excursion, but improved since admission. No appreciable wheeze or stridor, but breath sounds are stiff Heart with a lateral PMI; no appreciable murmur rub Abdomen is nontender and nondistended; bowel sounds positive 4 Lower extremities with nothing to suggest acute deep venous thrombophlebitis; note, Doppler venograms done 11/07/2012 showed no DVT Psychiatric awake and alert, but anxious Neurologic long-term motor function is intact Plan: Change IV Lasix to 20 mg p.o. twice daily. At discharge, Levaquin 500 mg p.o. daily for 7 days. Also at discharge, discontinue Solu Medrol and start prednisone 10 mg daily for 10 days then 10 mg every other day for 10 doses. She will need to follow-up with Dr. Juanita Mccarthy. She does not have a follow-up appointment to see us. We agree with your plans. We will sign off. Please reconsult as needed. Results - Labs CBC & BMP: 11/10/16 04:20 11/10/16 04:20
[2016-11-10] MEDS ORDERED: predniSONE 10 MG TABLET PO SCH (10:00)
[2016-11-10] MEDS ORDERED: LEVOFLOXACIN 500 MG TABLET PO SCH (10:00)
[2016-11-10] MEDS ORDERED: FUROSEMIDE 20 MG TABLET PO SCH (16:00)
[2016-11-21] MEDS ORDERED: predniSONE 10 MG TABLET PO SCH (09:00)
== END 2016-11-10 12:28 | disposition home or self-care (01) | DRG 291 ==
LOC: N.ED 06:53 → N.EDINP 09:03 → N.5E 09:24
PROVIDERS: ADMIT Internal Medicine; ATTEND Internal Medicine